=== PATIENT | male | born 1960 | race Caucasian/White ===

== ENCOUNTER 2017-08-29 19:46 | Inpatient (IN) | payer MEDICARE, MEDICAID ==
[2017-08-29 20:56] LABS: URINE MICROSCOPIC INDICATED? YES; URINE SOURCE CLEAN C
[2017-08-29 20:59] LABS: % BASOPHILS 0.5 % (0.0-2.0); % EOSINOPHILS 0.4 % (0.0-5.0); % LYMPHOCYTES 9.7 % (20.0-50.0); % MONOCYTES 8.1 % (2.0-10.0); % NEUTROPHILS 81.3 % (40.0-80.0); BASOPHILE ABSOLUTE 0.1 Th/cumm (0-0.2); HEMATOCRIT 27.7 % (41.0-60); HEMOGLOBIN 9.2 gm/dL (12-16); LYMPHOCYTE ABSOLUTE 1.2 Th/cmm (1.5-3.0); MEAN CELL VOLUME 76.8 fl (80-99); MEAN CORPUSCULAR HEMOGLOBIN 25.7 pg (26.0-30.0); MEAN CORPUSCULAR HGB CONC 33.4 pg (28.0-36.0); MEAN PLATELET VOLUME 5.6 fl; PLATELET COUNT 610 Th/cmm (150-400); RED CELL DISTRIBUTION WIDTH 15.2 % (11.5-20.0)
[2017-08-29 21:00] LABS: URINE BILIRUBIN NEGATIVE (NEGATIVE); URINE BLOOD NEGATIVE (NEGATIVE); URINE GLUCOSE (UA) NEGATIVE (NEGATIVE); URINE KETONE NEGATIVE (NEGATIVE); URINE LEUKOCYTE ESTERASE NEGATIVE (NEGATIVE); URINE NITRATE NEGATIVE (NEGATIVE); URINE PROTEIN NEGATIVE (NEGATIVE); URINE UROBILINOGEN 0.2 E.U./dL (0.2 - 1.0)
[2017-08-29 21:08] LABS: URINE BACTERIA NONE SEEN /hpf (NONE SEEN); URINE CLARITY CLEAR (CLEAR); URINE COLOR YELLOW; URINE EPITHELIAL CELLS NONE SEEN /lpf (FEW); URINE RBC NONE SEEN /hpf (0-5); URINE WBC NONE SEEN /hpf (0-5)
[2017-08-29 21:13] LABS: WHITE BLOOD COUNT 12.3 Th/cmm (4.8-10.8)
[2017-08-29 21:14] LABS: INR 1.1 (0.5-1.4); PROTHROMBIN TIME (TEST) 11.5 SECONDS (9.5-11.5)
[2017-08-29 21:17] LABS: ALB/GLOB RATIO 0.6 (1.0-1.8); ALKALINE PHOSPHATASE 173 U/L (34-104); ANION GAP 10.4 (7.0-16.0); BILIRUBIN,TOTAL 0.5 mg/dL (0.3-1.0); BUN - UREA NITROGEN 15 mg/dL (7-25); CALCIUM SERUM 8.9 mg/dL (8.6-10.3); CARBON DIOXIDE 20.5 mEq/L (21.0-31.0); CHLORIDE 97 mEq/L (98-107); CREATININE - SERUM 0.9 mg/dL (0.7-1.3); GFR AFRICAN-AMERICAN > 60.0 ml/min (>90); GFR NON AFRICAN-AMERICAN > 60.0 ml/min; GLUCOSE 114 mg/dL (70-105); POTASSIUM SERUM 3.9 mEq/L (3.5-5.1); SGOT 25 U/L (13-39); SGPT/ALT 50 U/L (7-52); SODIUM SERUM 124 mEq/L (136-145)
--- NOTE | 2017-08-29 21:26 | ED Physician Chart ---
ED Chief Complaint/HPI - Patient Information Date Seen:: 08/29/17 Time Seen:: 20:19 Chief Complaint:: BILATERAL HIP PAIN History of Present Illness:: THIS IS A 56 YO MALE WHO IS CONCERNED ABOUT HIS HIP PAIN THAT HAS GOTTEN WORSE RECENTLY. HE IS BEING TREATED IN PAIN MANAGEMENT WELL BY A NEURO SPECIALIST. HE HAD SURGERY ON BOTH HIPS AND LOWER BACK. Allergies:: Allergies Allergy/AdvReac Type Severity Reaction Status Date / Time No Known Allergies Allergy Verified 08/29/17 20:13 Vitals:: Vital Signs - 8 hr 08/29/17 20:00 Temp 98.2 F HR 90 RR 18 BP 122/62 O2 Sat % 99 Historian:: Patient Review:: Nurse's Note Reviewed ED Review of Systems - Review of Systems General/Constitutional: No fever, No chills, Weight loss, No weight loss, Weakness, No diaphoresis, No edema, No loss of appetite Skin: No skin lesions, No rash, No bruising Head: No headache, No light-headedness Eyes: No loss of vision, No pain, No diplopia ENT: No earache, No nasal drainage, No sore throat, No tinnitus Neck: No neck pain, No swelling, No thyromegaly, No stiffness, No mass noted Cardio Vascular: No chest pain, No palpitations, No PND, No orthopnea, No edema Pulmonary: No SOB, No cough, No sputum, No wheezing GI: No nausea, No vomiting, No diarrhea, No pain, No melena, No hematochezia, No constipation, No hematemesis G/U: No dysuria, No frequency, No hematuria Musculoskeletal: Bone or joint pain (CHRONIC HIP AND BACK PAIN), Back pain, No back pain, No muscle pain Endocrine: No polyuria, No polydipsia Psychiatric: No prior psych history, No depression, No anxiety, No suicidal ideation Hematopoietic: No bruising, No lymphadenopathy Allergic/Immuno: No urticaria, No angioedema Neurological: No syncope, No focal symptoms, No weakness, No paresthesia, No headache, No seizure, No dizziness, No confusion, No vertigo ED Past Medical History - Past Medical History Obtainable: Yes Past Medical History: Arthritis Family History: None Social History: Smoker, Alcohol, No Drug Use Surgical History: other (BACK SURGERY AND BILATERAL HIP SURGERY) Psychiatricy History: None Medication: Reviewed Family Medical History - Family Member Mother History Unknown: Yes Ethnicity: Living Status: Still Living Other Medical History: none ED Physical Exam - Physical Examination General/Constitutional: Awake, Well-developed, well-nourished, Alert, No distress, GCS 15, Non-toxic appearing, Ambulatory Head: Atraumatic Eyes: Lids, conjuctiva normal, PERRL, EOMI Skin: Nl inspection, No rash, No skin lesions, No ecchymosis, Well hydrated, No lymphadenopathy ENMT: External ears, nose nl, Nasal exam nl, Lips, teeth, gums nl Neck: Nontender, Full ROM w/o pain, No JVD, No nuchal rigidity, No bruit, No mass, No stridor Respiratory: Nl effort/Exclusion, Clear to Auscultation, No Wheeze/Rhonchi/Rales Cardio Vascular: RRR, No murmur, gallop, rubs, NL S1 S2 GI: No tenderness/rebounding/guarding, No organomegaly, No hernia, Normal BS's, Nondistended, No mass/bruits, No McBurney tenderness : No CVA tenderness Extremities: No tenderness or effusion (THE RIGHT HIP AREA IS TENDERNESS BILATERALLY), Full ROM, normal strength in all extremities, No edema, Normal digits & nails Other Extremities comments:: THERE IS SOME MILD TENDERNESS OF THE RIGHT JOINT AREA WITH PAINFUL LIMITED ROM OF BOTH HIPS. Neuro/Psych: Alert/oriented, DTR's symmetric, Normal sensory exam, Normal motor strength, Judgement/insight normal, Mood normal, Normal gait, No focal deficits Misc: Normal back, No paraspinal tenderness ED Labs/Radiology/EKG Results - Lab Results Results: Laboratory Tests 08/29/17 08/29/17 20:50 20:50 WBC 12.3 H RBC 3.60 L Hgb 9.2 L Hct 27.7 L MCV 76.8 L MCH 25.7 L MCHC Differential 33.4 RDW 15.2 Plt Count 610 H MPV 5.6 Neutrophils % 81.3 H Lymphocytes % 9.7 L Monocytes % 8.1 Eosinophils % 0.4 Basophils % 0.5 Urine Source CLEAN C Urine Color YELLOW Urine Clarity CLEAR Urine pH 6.0 Ur Specific [place] <= 1.005 Urine Protein NEGATIVE Urine Glucose (UA) NEGATIVE Urine Ketones NEGATIVE Urine Blood NEGATIVE Urine Nitrate NEGATIVE Urine Bilirubin NEGATIVE Urine Urobilinogen 0.2 Ur Leukocyte Esterase NEGATIVE Urine RBC NONE SEEN Urine WBC NONE SEEN Ur Epithelial Cells NONE SEEN Urine Bacteria NONE SEEN - Radiology Results Results: CHEST X-RAY = NAD - EKG Interpretations EKG Time:: 22:15 Rate & Rhythm: RATE = 71 NSR [place]: RIGHT ED Assessment - Assessment General Assessment: SEVERE RIGHT HIP PAIN ANEMIA DEHYDRATION ELEVATED PLATELETS ED Septic Shock - . Is Septic Shock (SBP<90, OR Lactate>4 mmol\L) present?: No - <6hrs of presentation: Vital Signs: Vital Signs - 8 hr 08/29/17 20:00 Temp 98.2 F HR 90 RR 18 BP 122/62 O2 Sat % 99 ED Reassessment (Disposition) - Reassessment Reassessment:: BILATERAL HIP ARTHRITIS ANEMIA DEHYDRATION ELEVATED WHITE COUNT Reassessment Condition:: Improved - Diagnosis Diagnosis:: RIGHT HIP ARTHRITIS ANEMIA DEHYDRATION ELEVATED PLATELETS ELEVATED WHITE COUNT - Patient Disposition Discharge/Transfer:: Acute Care w/in this hosp
[2017-08-29] MEDS ORDERED: Sodium Chloride 0.9% 1,000 ML IV ONE (22:34)
[2017-08-30] MEDS: Sodium Chloride 0.9% 1,000 ML IV SCH ×2 (03:39→17:16)
[2017-08-30 09:17] LABS: % BASOPHILS 0.3 % (0.0-2.0); % EOSINOPHILS 0.9 % (0.0-5.0); % LYMPHOCYTES 14.7 % (20.0-50.0); % MONOCYTES 6.6 % (2.0-10.0); % NEUTROPHILS 77.5 % (40.0-80.0); EOSINOPHILE ABSOLUTE 0.1 Th/cmm (0.1-0.4); HEMOGLOBIN 10.3 gm/dL (12-16); LYMPHOCYTE ABSOLUTE 1.1 Th/cmm (1.5-3.0); MEAN CELL VOLUME 78.7 fl (80-99); MEAN CORPUSCULAR HEMOGLOBIN 25.9 pg (26.0-30.0); MEAN CORPUSCULAR HGB CONC 32.9 pg (28.0-36.0); MONOCYTE ABSOLUTE 0.5 Th/cmm (0.3-1.0); NEUTROPHILE ABSOLUTE 5.6 Th/cmm (1.8-8.0); PLATELET COUNT 510 Th/cmm (150-400); RED BLOOD COUNT 3.97 Mil/cmm (4.30-5.70); RED CELL DISTRIBUTION WIDTH 15.3 % (11.5-20.0)
[2017-08-30 09:18] LABS: WHITE BLOOD COUNT 7.3 Th/cmm (4.8-10.8)
[2017-08-30 09:19] LABS: HEMATOCRIT 31.2 % (41.0-60)
[2017-08-30 09:32] LABS: ALB/GLOB RATIO 0.6 (1.0-1.8); ALBUMIN 2.7 gm/dL (4.2-5.5); ALKALINE PHOSPHATASE 154 U/L (34-104); ANION GAP 7.2 (7.0-16.0); BILIRUBIN,TOTAL 0.7 mg/dL (0.3-1.0); BUN - UREA NITROGEN 15 mg/dL (7-25); CALCIUM SERUM 8.8 mg/dL (8.6-10.3); CARBON DIOXIDE 23.3 mEq/L (21.0-31.0); CHLORIDE 104 mEq/L (98-107); CHOLESTEROL 138 mg/dL (<200); CREATININE - SERUM 0.7 mg/dL (0.7-1.3); GFR AFRICAN-AMERICAN > 60.0 ml/min (>90); GFR NON AFRICAN-AMERICAN > 60.0 ml/min; GLUCOSE 112 mg/dL (70-105); HDL -HIGH DENSITY LIPOPROTEIN 28 mg/dL (23-92); MAGNESIUM 1.9 mg/dL (1.9-2.7); POTASSIUM SERUM 3.5 mEq/L (3.5-5.1); SGOT 18 U/L (13-39); SGPT/ALT 40 U/L (7-52); SODIUM SERUM 131 mEq/L (136-145); TOTAL PROTEIN,SERUM 7.5 gm/dL (6.0-8.3); TRIGLYCERIDES 66 mg/dL (<150)
[2017-08-30 10:18] LABS: ESR SEDIMENTATION SED RATE 74 mm/hr (0-20)
--- NOTE | 2017-08-30 10:47 | Diagnostic Imaging Report ---
CT scan of the pelvis without intravenous contrast HISTORY: Pain Total DLP equals 512 CTDI equals 12.7 Axial sections were obtained from a level above the iliac crest down to level below the pubic symphysis. The exam is limited due to extensive artifact associated with bilateral hip arthroplasties. There is a distended urinary bladder. No abnormal soft tissue masses seen within the pelvis. No abnormal fluid collections. No acute bony abnormalities. Severe degenerative changes noted in the visualized lower lumbar spine. Hypertrophic spur formation results in approximate 5 mm extradural indentation on the anterior spinal canal at L5-S1. There is a moderate-sized fat-containing left inguinal hernia. IMPRESSION: 1. Limited exam due to artifact associated bilateral hip arthroplasties 2. Fat-containing left inguinal hernia 3. Relatively severe degenerative changes in the visualized lower lumbar spine
--- NOTE | 2017-08-30 10:53 | Diagnostic Imaging Report ---
CT scan right femur HISTORY: Pain Total DLP equals 724 CTDI equals 11.9 Axial sections were obtained from the lower pelvis down through the right femoral shaft. There is a right hip arthroplasty. Position and alignment are anatomic. Associated metallic artifact limits evaluation of the adjacent soft tissues. Questionable soft tissue tissue fullness adjacent to the medial aspect of the hip arthroplasty. IMPRESSION: 1. Very limited exam due to artifact related to metallic right hip arthroplasty 2. Questionable soft tissue fullness along the medial aspect of the arthroplasty.
--- NOTE | 2017-08-30 10:54 | Diagnostic Imaging Report ---
Portable chest x-ray History: Pain Allowing for portable technique the heart size is normal. No focal pulmonary parenchymal processes. No hilar or mediastinal abnormalities. Impression: No acute abnormalities.
[2017-08-30 13:06] VITALS: BP 109/68
[2017-08-30] MEDS: Morphine Sulfate 2 mg/mL 1mL Syr IVP PRN (15:10)
[2017-08-30] MEDS: cefTRIAXone 1 GM in Sodium Chloride 0.9% 50 ML IV SCH (21:36)
--- NOTE | 2017-08-30 22:02 | History & Physical ---
ADMIT DATE: 08/30/2017 HISTORY OF PRESENT ILLNESS: This is a 56-year-old male with past medical history of severe osteoarthritis who came in because of bilateral hip pain, right greater than left. The patient has a history of severe osteoarthritis for several years. As a consequence, he had a right hip arthroplasty in 2011 and the left hip arthroplasty in 2013. He had an L1-L3 laminectomy last 2015 at [facility] due to infection that has destroyed his disk. He continued to have chronic pain involving his back as well as bilateral hips but tolerable. A few days prior to admission, he experienced excruciating pain radiating down his right leg every time he moves. A few hours prior to admission, he could no longer tolerate the pain and proceeded to the Emergency Room. His white count was 12.3 which improved to 7.3. He has no history of fall/trauma, fever, chills, cough/congestion, nausea or vomiting, diarrhea nor dysuria. PAST MEDICAL HISTORY: Severe osteoarthritis. CURRENT MEDICATIONS: He is currently on ceftriaxone, ketorolac, morphine sulfate, sodium chloride. ALLERGIES: No known drug allergies. SOCIAL HISTORY: He smokes approximately 1-2 cigarettes a day. He has stopped smoking about a week ago. He drinks alcoholic beverages occasionally. 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 He used to work at [employer] prior to incapacitated by his arthritis. FAMILY HISTORY: Noncontributory to present illness. REVIEW OF SYSTEMS: CONSTITUTIONAL: He did complain of progressive weakness of his lower extremities. No fever or chills. Appetite had been fair. HEENT: No headaches. No dizziness. CARDIORESPIRATORY: He does not have any chest pain, palpitations, diaphoresis, cough or shortness of breath. GASTROINTESTINAL: No nausea and vomiting, abdominal pain or cramping, hematemesis, melena, hematochezia, no diarrhea. ENDOCRINE: No history of diabetes, thyroid abnormalities or dyslipidemia. MUSCULOSKELETAL: He has arthralgias, especially his bilateral hips. GENITOURINARY: No history of kidney failure. No dysuria nor hematuria. NEUROPSYCH: No syncopal episode nor seizure activity. He has severe pain originating from the lumbar area radiating down to his right leg. PHYSICAL EXAMINATION: GENERAL: The patient is awake, verbal, comfortable at this point because he is not moving and staying still. VITAL SIGNS: His blood pressure is 109/68, pulse 69, temperature 97 degrees. SKIN: Good turgor, warm, no rash, no jaundice appreciated. HEENT: Head normocephalic, atraumatic. EYES: Extraocular muscles intact. Pupils equal, round, reactive to light and accommodates. Anicteric sclerae. Pale conjunctivae. Nose: Midline nasal septum. Mouth: Moist mucosa with adequate dentition. NECK: Supple, no adenopathy, no thyromegaly, no bruits. Trachea palpated in the midline. CHEST AND CVS: S1, S2. No rub, murmur nor gallop appreciated. Point of maximal impulse fifth intercostal space, left midclavicular line. No abdominal or femoral bruits appreciated. LUNGS: Equal expansion. No use of accessory muscles. No supraclavicular retractions. Decreased breath sounds. Clear to auscultation without any wheeze. ABDOMEN: Flat, soft. Positive for bowel sounds. No bruits either diastolic or systolic. RECTAL: Lax sphincter tone. GENITOURINARY: Normal appearing male genitalia. MUSCULOSKELETAL: No effusions present in his joints, unable to assess his range of motion due to pain on movement of his lower extremities. EXTREMITIES: No evidence of any edema, cyanosis nor clubbing with palpable femoral, popliteal, dorsalis pedis pulses. NEUROLOGIC: Unable to move both lower extremities due to excruciating pain. LABORATORY DATA: Did reveal white count 7.3, hemoglobin 10.3, hematocrit 31.2, platelets 510. Sodium 131, potassium is 3.5, chloride 104, bicarb 23, BUN 15, creatinine 0.7, glucose 112, albumin 2.7. IMPRESSION: 1. Severe right hip pain radiating down his right leg on ambulation, possible neuropathy as a result of spur formation from L5-S1 and a combination with his severe DJD. 2. Anemia of chronic disease. 3. Severe DJD. PLAN: 1. Physical therapy. 2. Continue on with analgesics and probably referral to Analgesics. 3. Referred to pain management. JOB# [id number]
[2017-08-31] MEDS: Morphine Sulfate 2 mg/mL 1mL Syr IVP PRN (10:44)
[2017-08-31] MEDS: Sodium Chloride 0.9% 1,000 ML IV SCH (10:49)
[2017-08-31] MEDS ORDERED: Morphine Sulfate 4 mg/mL 1mL Syr IVP PRN (16:19)
[2017-08-31] MEDS: cefTRIAXone 1 GM in Sodium Chloride 0.9% 50 ML IV SCH (22:00)
[2017-09-01] MEDS: Sodium Chloride 0.9% 1,000 ML IV SCH (06:08)
[2017-09-01 06:20] LABS: % BASOPHILS 0.1 % (0.0-2.0); % EOSINOPHILS 0.8 % (0.0-5.0); % LYMPHOCYTES 11.6 % (20.0-50.0); % MONOCYTES 7.8 % (2.0-10.0); % NEUTROPHILS 79.7 % (40.0-80.0); EOSINOPHILE ABSOLUTE 0.1 Th/cmm (0.1-0.4); HEMATOCRIT 30.7 % (41.0-60); HEMOGLOBIN 10.1 gm/dL (12-16); LYMPHOCYTE ABSOLUTE 1.2 Th/cmm (1.5-3.0); MEAN CELL VOLUME 78.6 fl (80-99); MEAN CORPUSCULAR HEMOGLOBIN 25.7 pg (26.0-30.0); MEAN CORPUSCULAR HGB CONC 32.7 pg (28.0-36.0); MEAN PLATELET VOLUME 5.8 fl; MONOCYTE ABSOLUTE 0.8 Th/cmm (0.3-1.0); NEUTROPHILE ABSOLUTE 8.5 Th/cmm (1.8-8.0); PLATELET COUNT 554 Th/cmm (150-400); RED BLOOD COUNT 3.91 Mil/cmm (4.30-5.70); RED CELL DISTRIBUTION WIDTH 15.7 % (11.5-20.0); WHITE BLOOD COUNT 10.6 Th/cmm (4.8-10.8)
[2017-09-01 06:34] LABS: ANION GAP 7.9 (7.0-16.0); BUN - UREA NITROGEN 14 mg/dL (7-25); CALCIUM SERUM 8.9 mg/dL (8.6-10.3); CARBON DIOXIDE 23.1 mEq/L (21.0-31.0); CHLORIDE 106 mEq/L (98-107); CREATININE - SERUM 0.8 mg/dL (0.7-1.3); GFR AFRICAN-AMERICAN > 60.0 ml/min (>90); GFR NON AFRICAN-AMERICAN > 60.0 ml/min; GLUCOSE 97 mg/dL (70-105); SODIUM SERUM 133 mEq/L (136-145)
[2017-09-01 09:23] LABS: CARCINOEMBRYONIC ANTIGEN 1.3 ng/mL (0.0-4.7)
--- NOTE | 2017-09-02 13:51 | Discharge Summary ---
DATE OF DISCHARGE: 09/01/2017 ADMITTING DIAGNOSES: 1. Severe right hip pain with radiation to the lower extremity/neuropathy. 2. [id number] lower back pain. 3. Anemia, likely of chronic disease. 4. Mild hyponatremia. SECONDARY DIAGNOSES: 1. Remote L1-L2 laminectomies. 2. Interval healing of L1-L2 diskitis and adjacent vertebral osteomyelitis, no active disease. DISCHARGE DIAGNOSES: 1. Severe right hip pain with radiation to the lower extremity/neuropathy, improved. 2. [id number] lower back pain, improved. 3. Anemia of chronic disease, status post packed red blood cells transfusion, improved. 4. Hyponatremia, improved. CONSULTANTS: No consultants were used during this admission. MAJOR PROCEDURES: CT of the LS spine shows: 1. Very limited exam due to artifact related to metallic right hip arthroplasty. 2. Questionable soft tissue fullness along the medial aspect of the arthroplasty. There was a pelvis CT, shows: 1. Limited exam due to artifact. 2. Fat-containing left inguinal hernia. 3. Relatively severe degenerative changes. MEDICATIONS ON DISCHARGE: Celebrex 200 mg q. day, Flexeril 10 mg q. 8 p.r.n. for pain, Doyle 5/325 one tab q. 4 p.r.n. for severe pain. BRIEF HOSPITAL COURSE: A 56-year-old gentleman with severe osteoarthritis with history of laminectomies who presented to the ED with acute lower back pain with radiation to both extremities, right greater than left. Pertinent findings on admission included a white count of 12.3 and H and H of 9/27 and sodium of 124. The patient was given IV fluids, IV pain meds and was seen by Physical Therapy. His labs did improve and by 08/30/2017 the white count had gone down to 7.3. His sodium had improved to 131. UA and blood cultures were noted to be negative. The patient was started on Celebrex, Flexeril and was given IV pain meds (morphine and Toradol) with improvement of his symptoms. DISPOSITION: The patient was discharged home with home health for PT. I instructed the patient to follow up with his primary care doctor within 2-3 days and to follow up with his orthopedic surgeon as well as his pain management doctor. [facility]# [id number]
== END 2017-09-01 16:00 | disposition home health service (06) | DRG 74 ==
LOC: ER 19:46 → ERII 20:05 → MSI 20:05
PROVIDERS: ADMIT Internal Medicine; ATTEND Internal Medicine
PROC: 30233N1 Transfusion of Nonautologous Red Blood Cells into Peripheral Vein, Percutaneous Approach (ICD-10-PCS; principal; 2017-08-30)
DX: G57.91 Unspecified mononeuropathy of right lower limb (principal); E87.1 Hypo-osmolality and hyponatremia; F17.210 Nicotine dependence, cigarettes, uncomplicated; E86.0 Dehydration; D63.8 Anemia in other chronic diseases classified elsewhere; M54.5 Low back pain; M16.11 Unilateral primary osteoarthritis, right hip
CPT/HCPCS: 36415-UA; 71045-TC; 72192-TC; 73700-TC-RT; 80048-TC; 80053-TC; 80061-TC; 81001-TC; 82378-90; 83540-90; 83550-90; 83605; 83735-TC; 84443-TC; 85025-TC; 85610-TC; 85652-TC; 86141-TC; 86850-TC; 86900-TC; 86901-TC; 86922-TC; 93005; 97530; J0696; J1885; J2270; J7030; P9016; X3904; Z7610